=== PATIENT | male | born 1950 | race Caucasian/White ===

== ENCOUNTER → 2017-06-11 | Outpatient (CLI) | payer MEDICARE, OTHER ==
[~2017-06-11] MED LIST: ASPI1TAB57 PO; ASPI81 PO; FISH300C2 PO; MOEX15TA3 PO; MOEX1TAB PO; MULT1TAB46 PO; PRAV40TA2 PO; PREV30CA36 PO; RABE1TAB PO; VITA10004 PO
[2017-06-11 09:50] LABS: BILIRUBIN, URINE NEG (NEG); GLUCOSE,URINE NEG (NEG); KETONE, URINE NEG (NEG); NITRITE,URINE NEG (NEG); PH, URINE 6.5 (5.0-8.5); URINE COLOR YELLOW (YELLW/STRAW); URINE LEUKOCYTE ESTERASE NEG (NEG)
[2017-06-11 09:52] LABS: AUTOMATED NEUTROPHIL # 4.2 TH/MM3 (1.8-7.7); BASOPHIL % 0.5 % (0.0-2.0); EOSINOPHIL # 0.3 TH/MM3 (0-0.4); EOSINOPHIL % 3.5 % (0.0-4.0); HEMATOCRIT 43.1 % (39.0-51.0); HEMOGLOBIN 15.6 GM/DL (13.0-17.0); LYMPH % 30.4 % (9.0-44.0); LYMPHOCYTE # 2.3 TH/MM3 (1.0-4.8); MEAN CELL VOLUME 88.4 FL (80.0-100.0); MEAN CORPUSCULAR HEMOGLOBIN 32.1 PG (27.0-34.0); MEAN PLATELET VOLUME 8.6 FL (7.0-11.0); MONO % 8.9 % (0.0-8.0); MONOCYTE # 0.7 TH/MM3 (0-0.9); NEUT % 56.7 % (16.0-70.0); PLATELET COUNT 229 TH/MM3 (150-450); RED BLOOD COUNT 4.88 MIL/MM3 (4.50-5.90); RED CELL DISTRIBUTION WIDTH 13.6 % (11.6-17.2); WHITE BLOOD COUNT 7.5 TH/MM3 (4.0-11.0)
[2017-06-11 09:53] LABS: MEAN CORPUSCULAR HGB CONC 36.3 % (32.0-36.0)
[2017-06-11 09:54] LABS: PROTHROMBIN TIME - PATIENT 10.5 SEC (9.8-11.6)
[2017-06-11 09:54] LABS: BLOOD, URINE TRACE (NEG)
[2017-06-11 10:10] LABS: WESTERGREN SEDIMENTATION RATE 8 mm/hr (0-20)
--- NOTE | 2017-06-11 10:10 | RADRPT ---
EXAM DATE/TIME: 06/11/2017 09:57 [place] COMPARISON: No previous studies available for comparison. INDICATIONS : Evaluate for pneumonia, pneumothorax or communicable disease. Pre op for right hip surgery 06-28-17 MEDICAL HISTORY : None. SURGICAL HISTORY : None. ENCOUNTER: Initial ACUITY: 1 day PAIN SCORE: 0/10 LOCATION: Bilateral chest FINDINGS: PA and lateral views of the chest demonstrate the lungs to be symmetrically aerated without evidence of mass, infiltrate or effusion. The cardiomediastinal contours are unremarkable. Osseous structure s are intact. CONCLUSION: No acute disease. Pardeep Hurt MD FACR on June 11, 2017 at 10:08 Board Certified Radiologist. This report was verified electronically.
[2017-06-11 10:14] LABS: ALBUMIN 4.1 GM/DL (3.4-5.0); AST (GOT) 25 U/L (15-37); BICARBONATE 24.7 MEQ/L (21.0-32.0); BLOOD UREA NITROGEN 12 MG/DL (7-18); CALCIUM 9.2 MG/DL (8.5-10.1); CHLORIDE 104 MEQ/L (98-107); CREATININE 1.11 MG/DL (0.60-1.30); GLOMERULAR FILTRATION RATE 66 ML/MIN (>89); GLUCOSE,FASTING 125 MG/DL (74-99); SODIUM (NA) 138 MEQ/L (136-145)
[2017-06-11 10:15] LABS: ALT (GPT) 40 U/L (12-78)
[2017-06-11 10:17] LABS: ALKALINE PHOSPHATASE 80 U/L (45-117); TOTAL BILIRUBIN ADULT 0.5 MG/DL (0.2-1.0); TOTAL PROTEIN 7.3 GM/DL (6.4-8.2)
--- NOTE | 2017-06-11 17:17 | EKG ---
Date Performed: 06/11/2017 Time Performed: 09:17:57 PTAGE: 67 years EKG: Sinus rhythm NONSPECIFIC T-WAVE ABNORMALITY BORDERLINE ECG NO PREVIOUS TRACING DOCTOR: Omar Mckeon Interpretating Date/Time 06/11/2017 16:28:23
== END ==
LOC: CPRE 08:52
PROVIDERS: ATTEND Orthopaedic Surgery Sports Medicine
DX: Z01.812 Encounter for preprocedural laboratory examination (principal); Z01.810 Encounter for preprocedural cardiovascular examination; Z01.811 Encounter for preprocedural respiratory examination; M16.11 Unilateral primary osteoarthritis, right hip; M25.50 Pain in unspecified joint; R94.31 Abnormal electrocardiogram [ECG] [EKG]; Z79.899 Other long term (current) drug therapy; Z79.82 Long term (current) use of aspirin
CPT/HCPCS: 36415; 71046; 80053; 81001; 85007; 85027; 85610; 85652; 85730; 93005

== ENCOUNTER 2017-06-28 06:23 | Inpatient (IN) | END 2017-06-30 11:10 | disposition home health service (06) | DRG 470 | DX: M16.11 Unilateral primary osteoarthritis, right hip (principal); E87.2 Acidosis; R65.10 Systemic inflammatory response syndrome (SIRS) of non-infectious origin without acute organ dysfunction; E11.65 Type 2 diabetes mellitus with hyperglycemia; I10 Essential (primary) hypertension; E78.5 Hyperlipidemia, unspecified; K21.9 Gastro-esophageal reflux disease without esophagitis; K22.70 Barrett's esophagus without dysplasia; R00.0 Tachycardia, unspecified; Z87.891 Personal history of nicotine dependence ==

== ENCOUNTER 2018-02-21 05:23 | Inpatient (IN) ==
[2018-02-21] MEDS ORDERED: Tranexamic Acid Inj 3,000 MG in Sodium Chlor 0.9% Inj 100 ML IV.SIG SCH (06:00)
[2018-02-21] MEDS ORDERED: SODIUM CHLOR 0.9% IV.SIG SCH (06:00)
[2018-02-21] MEDS ORDERED: TRANEXAMIC ACID IV.SIG SCH (06:00)
[2018-02-21] MEDS ORDERED: Chlorhexidine Gluconate 2% 1 Pack (2 Cloths) TOPICAL ONE (06:15)
[2018-02-21] MEDS ORDERED: Metoprolol Tartrate 25 MG Tablet PO ONE (06:15)
[2018-02-21] MEDS ORDERED: Sodium Chlor 0.9% Inj 500 ML IV.CONT ONE (06:15)
[2018-02-21] MEDS ORDERED: Sodium Chlor 0.9% Inj 40 ML, Bupivacaine Liposo PF 1.3% Inj 20 ML P-ARTICULR SCH ×2 (06:17)
[2018-02-21] MEDS ORDERED: Chlorhexidine 4% Topical 120 APPLIC/120 ML Bottle TOPICAL SCH (06:30)
[2018-02-21] MEDS ORDERED: Dexamethasone Inj 20 MG/5 ML Vial IV.PUSH SCH (06:30)
[2018-02-21] MEDS ORDERED: HYDROmorphone PF Inj 1 MG/ML Ampul IV.PUSH PRN (06:56)
[2018-02-21] MEDS ORDERED: Post-op Orders (for Pharmacy) OTHER STA (06:56)
[2018-02-21] MEDS ORDERED: Bisacodyl 10 MG Supp RECTAL PRN (06:56)
[2018-02-21] MEDS ORDERED: Zolpidem Tartrate 5 MG Tablet PO PRN (06:56)
[2018-02-21] MEDS ORDERED: Vancomycin Inj 1,000 MG in Sodium Chlor 0.9% Inj 250 ML IV.SIG SCH (07:00)
[2018-02-21] MEDS ORDERED: ceFAZolin 2 GM Premix Inj 2 GM/50 ML PIGGYBACK IV.SIG SCH (07:00)
[2018-02-21] MEDS ORDERED: Propofol Inj 500 MG/50 ML Vial ONE (08:07)
[2018-02-21] MEDS: Senna/Docusate Sodium 8.6/50 MG Tablet PO SCH ×2 (09:00→21:37)
[2018-02-21] MEDS: Multivitamin/Minerals Therapeutic Tablet PO SCH ×2 (09:00→21:37)
--- NOTE | 2018-02-21 10:20 | P.OP ---
Procedure: PREOPERATIVE DIAGNOSIS: Right hip osteoarthritis. POSTOPERATIVE DIAGNOSIS: Right hip osteoarthritis. PROCEDURE PERFORMED: Right total hip arthroplasty. SURGEON: Dr. Orville Hinds M.D. UTILITY SYSTEMS REPAIRER OPERATOR: BECKA John. ANESTHESIA: General. ESTIMATED BLOOD LOSS: 250 mL. COMPLICATIONS: None. IMPLANTS USED: Depuy Corail femoral stem [] 13 standard offset femoral stem [place] Gripsion Cup [] 54 solid Poly insert liner neutral [] 54 x 36 femoral head [] 36 mm ceramic neck length [] +8.5 JUSTIFICATION: This patient presents to the undersigned at the orthopedic clinic with chief complaints of severe Right hip pain. The pain is severe and constant and interferes with activities of daily living. The patient has failed greater than 3 months of nonoperative conservative treatment to include analgesic and nonsteroidal anti-inflammatory medications, physical therapy, cortisone injections, activity modification, weight loss, home exercise program, and use of ambulatory assistive aids. X-rays of right hip reveal severe osteoarthritis with [id number] joint space narrowing, subchondral sclerosis, subchondral cysts, osteophyte formation with subluxation. The patient was counseled on risks, benefits, and alternatives to a total hip arthroplasty. The risks were discussed, which include, but are not limited to, anesthesia, bleeding, infection, damage to nerves and blood vessels , pain, stiffness, fracture, dislocations, leg length discrepancy, failure of components, blood clots, pulmonary embolus, and even . The patient favored the benefits over the risks, did wish to proceed with surgery. PROCEDURE IN DETAIL: Written consent was obtained. The patient was identified by name, taken to the operating room and placed supine on the operating table. General anesthesia was administered. The patient was preoperative IV antibiotics. The patient right and left feet were placed in the padded traction boots. The right hip and lower extremity was then prepped and draped using isopropyl alcohol, Hibiclens solution and ChloraPrep solution. After a timeout was performed, a longitudinal incision was made over the anterior aspect of the right hip. The fascia jameel was incised. Dissection was carried over the tensor fascia jameel beneath the rectus femoris. After exposure of the anterior capsule, a capsulotomy incision was performed. An oscillating saw was used to perform a femoral neck cut. The osteoarthritic femoral head and neck was removed. A 10 blade scalpel was used to excise the labrum. Sequential reaming of the acetabulum was performed. Subsequently a porous-coated titanium acetabular cup was implanted in a press manner in approximately 45 degrees of abduction and 10 degrees of anteversion. There was good purchase and fixation after insertion of the acetabular cup. The cup was tested manually and noted to have excellent stability and fixation. A neutral highly cross-linked polyethylene liner was placed within the cup. The liner was impacted in place for fixation and tested for stability. Attention was turned to the femur where the leg was externally rotated, extended and adducted. The capsule was released off the undersurface of the greater trochanter to allow for elevation and lateralization of the femur. A box cutting osteotome was used to gain entrance into the intramedullary canal of the femur. This was followed by a canal finder and sequential broaching. A calcar planer to plane the calcar. A trial head and neck combination were evaluated prior to implantation of final components. With the final implants placed, the leg could achieve external rotation of 70 degrees and extension to the the ground without evidence of anterior instability or impingement. Soft tissue tension felt appropriate. Fluoroscopic imaging showed appropriate implantation of components. The Surgical wound was thoroughly irrigated with sterile saline Pulse Lavage antibiotic impregnated solution. The fascial layer was closed with #1 Vicryl suture, subcutaneous layer with 2-0 Vicryl sutures. The skin was closed with Dermabond. Sterile dressing applied. No intraoperative complications noted. Kal Frederick, Physician Industrial Sociologist, Certified was present for the entire procedure to include the patient position, the procedure itself. The medical necessity of a physician payroll human resources assistant was indicated in this case due to the complexity of the procedure. He assisted with position of the patient along with the ear itself. During the procedure he assisted with exposure and the retraction of muscle, tendon, bone, and neurovascular vessel structures. He assisted with the preparation of bone and also implantation of the prosthetic replacement. There was a lot technician in the room that assisted with management of instruments, but was not available to assist with the surgery itself. Orville Rodriguez MD Surgeon: Orville Rodriguez MD
--- NOTE | 2018-02-21 10:22 | P.OP ---
Procedure: PREOPERATIVE DIAGNOSIS: Left hip osteoarthritis. POSTOPERATIVE DIAGNOSIS: Left hip osteoarthritis. PROCEDURE PERFORMED: Left total hip arthroplasty. SURGEON: Dr. Orville Hinds M.D. DAIRY FROZEN MANAGER: BECKA John. ANESTHESIA: General. ESTIMATED BLOOD LOSS: 250 mL. COMPLICATIONS: None. IMPLANTS USED: Depuy Corail femoral stem [] 13 standard offset [place] Gripsion Cup [] 54 solid Poly insert liner neutral [] 54 x 36 femoral head [] 36 mm ceramic neck length [] +8.5 JUSTIFICATION: This patient presents to the undersigned at the orthopedic clinic with chief complaints of severe left hip pain. The pain is severe and constant and interferes with activities of daily living. The patient has failed greater than 3 months of nonoperative conservative treatment to include analgesic and nonsteroidal anti-inflammatory medications, physical therapy, cortisone injections, activity modification, weight loss, home exercise program, and use of ambulatory assistive aids. X-rays of left hip reveal severe osteoarthritis with [id number] joint space narrowing, subchondral sclerosis, subchondral cysts, osteophyte formation with subluxation. The patient was counseled on risks, benefits, and alternatives to a total hip arthroplasty. The risks were discussed, which include, but are not limited to, anesthesia, bleeding, infection, damage to nerves and blood vessels , pain, stiffness, fracture, dislocations, leg length discrepancy, failure of components, blood clots, pulmonary embolus, and even . The patient favored the benefits over the risks, did wish to proceed with surgery. PROCEDURE IN DETAIL: Written consent was obtained. The patient was identified by name, taken to the operating room and placed supine on the operating table. General anesthesia was administered. The patient was preoperative IV antibiotics. The patient right and left feet were placed in the padded traction boots. The left hip and lower extremity was then prepped and draped using isopropyl alcohol, Hibiclens solution and ChloraPrep solution. After a timeout was performed, a longitudinal incision was made over the anterior aspect of the left hip. The fascia jameel was incised. Dissection was carried over the tensor fascia jameel beneath the rectus femoris. After exposure of the anterior capsule, a capsulotomy incision was performed. An oscillating saw was used to perform a femoral neck cut. The Osteoarthritic femoral head and neck was removed. A 10 blade scalpel was used to excise the labrum. Sequential reaming of the acetabulum was performed. Subsequently a porous-coated titanium acetabular cup was implanted in a press manner in approximately 45 degrees of abduction and 10 degrees of anteversion. There was good purchase and fixation after insertion of the acetabular cup. The cup was tested manually and noted to have excellent stability and fixation. A neutral highly cross-linked polyethylene liner was placed within the cup. The liner was impacted in place for fixation and tested for stability. Attention was turned to the femur where the leg was externally rotated, extended and adducted. The capsule was released off the undersurface of the greater trochanter to allow for elevation and lateralization of the femur. A box cutting osteotome was used to gain entrance into the intramedullary canal of the femur. This was followed by a canal finder and sequential broaching. A calcar planer to plane the calcar. A trial head and neck combination were evaluated prior to implantation of final components. With the final implants placed, the leg could achieve external rotation of 70 degrees and extension to the the ground without evidence of anterior instability or impingement. Soft tissue tension felt appropriate. Fluoroscopic imaging showed appropriate implantation of components. The Surgical wound was thoroughly irrigated with sterile saline Pulse Lavage antibiotic impregnated solution. The fascial layer was closed with #1 Vicryl suture, subcutaneous layer with 2-0 Vicryl sutures. The skin was closed with Dermabond. Sterile dressing applied. No intraoperative complications noted. Kal Frederick, Physician Yard Labor Supervisor, Certified was present for the entire procedure to include the patient position, the procedure itself. The medical necessity of a physician financial sales assistant was indicated in this case due to the complexity of the procedure. He assisted with position of the patient along with the ear itself. During the procedure he assisted with exposure and the retraction of muscle, tendon, bone, and neurovascular vessel structures. He assisted with the preparation of bone and also implantation of the prosthetic replacement. There was a surgical services asst in the room that assisted with management of instruments, but was not available to assist with the surgery itself. Orville Rodriguez MD Surgeon: Orville Rodriguez MD
--- NOTE | 2018-02-21 10:38 | XR ---
EXAM DATE: 02/21/2018 10:30 AM EST AGE/SEX: 67 years / Male INDICATIONS: Left total hip replacement. CLINICAL DATA: This is the patient's initial encounter. Patient reports that signs and symptoms have been present for 1 day and indicates a pain score of Nonresponsive. MEDICAL/SURGICAL HISTORY: Non-responsive. Non-responsive. COMPARISON: No prior exams available for comparison. FINDINGS: Spot intraoperative fluoroscopic radiographs of the left hip demonstrate a total hip arthroplasty in place, and subcutaneous air noted. CONCLUSION: Left hip arthroplasty. Electronically signed by: Wilman Salamanca MD Board Certified Radiologist 02/21/2018 10:37 AM EST
[2018-02-21] MEDS: Lisinopril 20 MG Tablet PO SCH (10:45)
[2018-02-21] MEDS ORDERED: fentaNYL Citrate Inj 100 MCG/2 ML Ampul ONE (11:01)
[2018-02-21] MEDS ORDERED: *morphine SULFATE 4 MG/ML PERIprocedure ONLY ONE (11:03)
[2018-02-21] MEDS ORDERED: *morphine SULFATE 10 MG/ML PERIprocedure ONLY ONE (11:15)
[2018-02-21] MEDS ORDERED: *HYDROmorphone PF Inj 1 MG/ML Ampul PERIprocedural Use ONLY ONE (11:33)
--- NOTE | 2018-02-21 11:59 | XR ---
EXAM DATE: 02/21/2018 11:37 AM EST AGE/SEX: 67 years / Male INDICATIONS: Left total hip replacement. CLINICAL DATA: This is the patient's initial encounter. Patient reports that signs and symptoms have been present for 1 day and indicates a pain score of 10/10. MEDICAL/SURGICAL HISTORY: None. . Right total hip replacement COMPARISON: [facility] [place], HIP RIGHT (AP&LAT 2/3VWS) W AP PELVIS, 06/28/2017. . FINDINGS: Bilateral total hip arthroplasties are noted. Femoral and acetabular components appear well seated. N o fractures are seen. CONCLUSION: Interval left hip arthroplasty. Electronically signed by: Wilman Salamanca MD Board Certified Radiologist 02/21/2018 11:57 AM EST
[2018-02-21] MEDS: ceFAZolin 2 GM Premix Inj 2 GM/50 ML PIGGYBACK IV.SIG SCH ×2 (13:32→21:38)
[2018-02-22] MEDS: ceFAZolin 2 GM Premix Inj 2 GM/50 ML PIGGYBACK IV.SIG SCH (01:22)
[2018-02-22 08:12] LABS: Hematocrit 38.2 % (39.0-51.0); Hemoglobin 13.6 gm/dL (13.0-17.0)
[2018-02-22] MEDS: Multivitamin/Minerals Therapeutic Tablet PO SCH (08:33)
[2018-02-22] MEDS: Senna/Docusate Sodium 8.6/50 MG Tablet PO SCH (08:33)
[2018-02-22] MEDS: Lisinopril 20 MG Tablet PO SCH (08:33)
--- NOTE | 2018-02-22 08:36 | P.PNOP ---
Subjective Interval history: pain controlled. Physical Exam Vital signs: Vital Signs 02/21/18 10:51 02/21/18 11:00 02/21/18 11:15 Temperature 97.5 F L Pulse Rate 84 88 85 Respiratory Rate 19 14 17 Blood Pressure 80/46 L 104/56 L 102/53 L Pulse Oximetry 96 96 96 02/21/18 11:30 02/21/18 11:45 02/21/18 11:53 Temperature Pulse Rate 91 H 84 Respiratory Rate 13 16 17 Blood Pressure 108/54 L 108/58 L Pulse Oximetry 98 95 02/21/18 12:00 02/21/18 13:00 02/21/18 13:59 Temperature 97.5 F L Pulse Rate 90 95 H 86 Respiratory Rate 20 16 Blood Pressure 114/59 L 131/62 119/64 Pulse Oximetry 96 96 02/21/18 14:52 02/21/18 16:00 02/21/18 20:55 Temperature 97.1 F L 97.5 F L Pulse Rate 91 H 94 H Respiratory Rate 18 18 18 Blood Pressure 113/70 140/70 Pulse Oximetry 95 97 02/22/18 01:10 02/22/18 04:00 Temperature 97.6 F 97.2 F L Pulse Rate 95 H 92 H Respiratory Rate 18 17 Blood Pressure 143/71 H 137/72 Pulse Oximetry 98 95 Intake & Output 02/21/18 02/22/18 02/22/18 18:59 06:59 18:59 Intake Total 2356.85 / 2356.85 600 / 600 1000 / 1000 Output Total 450 / 450 320 / 320 Balance 1906.85 / 1906.85 280 / 280 1000 / 1000 Weight 112.3 kg Intake: IV 1995.85 / 1995.85 600 / 600 1000 / 1000 LR 1000 mL Inj 1,000 ML @ 80 1300 / 1300 500 / 500 1000 / 1000 mls/hr IV.CONT .[id number] MARY ELLEN Rx# :[id number] Ofirmev Inj 1,000 mg In 100 ml 100 / 100 @ 0 mls/hr IV.SIG .STK-MED ONE Rx#:[id number] Cyklokapron Inj 3,000 MG In NS 246.85 / 246.85 Inj 100 ML @ 200 mls/hr IV.SIG ONCE MARY ELLEN Rx#:[id number] Vancomycin Inj 1,000 MG In NS 250 / 250 Inj 250 ML @ 250 mls/hr IV.SIG HYDRAULIC MINER BLASTING MARY ELLEN Rx#:[id number] Ancef 2 GM Premix Inj 2 gm In 100 / 100 100 / 100 50 ml @ 100 mls/hr IV.SIG Q6H MARY ELLEN Rx#:[id number] Oral 360 / 360 Output: Urine 200 / 200 320 / 320 Estimated Blood Loss 250 / 250 Narrative: in bed, eating, nad dressing c/d/i thigh soft neg homans nvi Results - Labs CBC & Chem 7: 02/22/18 07:13 Laboratory Results - last 24 hr 02/22/18 07:13 Hgb 13.6 Hct 38.2 L - Imaging Impressions Hip X-Ray 02/21/18 00:00 CONCLUSION: Left hip arthroplasty. Hip X-Ray 02/21/18 06:55 CONCLUSION: Interval left hip arthroplasty. Assessment and Plan - Ortho Post Op Day # 1 - Assessment and Plan s/p L IVETH anterior approach wbat maintain dressing asa 81 d/c planning home cleared if does well in PT f/up dr. lara 2 weeks
--- NOTE | 2018-02-23 11:35 | MD ---
cc: Orville Rodriguez MD DATE OF DISCHARGE: 02/22/2018 ADMITTING DIAGNOSIS: Severe degenerative osteoarthritis, left hip. DISCHARGE DIAGNOSIS: Severe degenerative osteoarthritis, left hip. HISTORY OF PRESENT ILLNESS: Mr. Patel is a 67-year-old male who has been a patient of Dr. Orville Rodriguez at the orthopedic clinic. He is currently being treated for severe and progressive left hip pain. The patient states the pain has been progressive for several years and is currently limiting his ability to ambulate safely. He does have a history of a well-functioning right total hip arthroplasty. The patient notes the left hip pain is severe and aching, is aggravated with weightbearing activities. He has no alleviating factors, although he has tried medications, assistive devices, physical therapy, and home exercises without relief of symptoms. He does have x-ray evidence of severe degenerative osteoarthritis of the left hip. While in the office, the patient was counseled on his diagnosis and treatment options. Risks, benefits, and indications of all were discussed. The patient did elect to proceed with surgical intervention to include a left total hip arthroplasty. DATE OF SURGERY: 02/21/2018, left total hip arthroplasty, anterior approach. POSTOP: After surgery, the patient was admitted to [facility] where he received appropriate medical management, pain control, DVT prophylaxis, as well as physical therapy. DISCHARGE: Once being discharged from the hospital, the patient was cleared to go home where he will receive home physical therapy. He is in stable condition. He may weight bear as tolerated with anterior hip precautions. He has been instructed on wound care management. He has been provided prescriptions for pain control and DVT prophylaxis medication. He has also been provided a followup appointment in approximately 2 weeks from his date of surgery. The patient has asked appropriate questions which have been answered. The patient has been discharged. Dictated by ZELDA John Orville Rodriguez MD JWM/jer , 07:33 AM , 07:38 AM
== END 2018-02-22 14:42 | disposition home or self-care (01) | DRG 470 ==
LOC: HSDI 05:23 → N06 14:15
PROVIDERS: ADMIT Orthopaedic Surgery Sports Medicine; ATTEND Orthopaedic Surgery Sports Medicine
CPT/HCPCS: 73502; 76000; 85014; 85018; 86850; 86900; 86901; 94150; 97110; 97116; 97150; 97162; 97167; C1776; C9290; J0131; J0690; J1100; J1170; J2270; J2704; J3010; J3370; J7050; J7120